=== PATIENT | female | born 1960 | race African-American/Black ===

== ENCOUNTER 2019-08-03 14:37 | Inpatient (IN) | payer MEDICAID, OTHER ==
[~2019-08-03] VITALS: Ht 165.1 cm; Wt 67.8 kg
[~2019-08-03 14:37] MED LIST: BALANCED SALT IRRIG SOLN 15ML ONE; BUPIVACAINE HCL/PF 0.75% (7.5MG/ML) 10ML ONE; CIPROFLOXACIN 0.3% OPHTH SOLN 2.5ML ONE; LIDOCAINE HCL 2%/EPINEPHRINE 1:100,000 20 ML VIAL INFIL ONE; PREDNISOLONE ACETATE 1% OPHTH DROPS 5ML ONE; TROPICAMIDE 1% OPHTH DROPS 15ML ONE
[2019-08-03] MEDS ORDERED: MORPHINE SULFATE 4 MG/ML CPJ (NOT FOR IM USE) IV ONE ×4 (15:30→20:30)
[2019-08-03] MEDS ORDERED: LIDOCAINE HCL/EPINEPHRINE 1%-EPI 1:100,000 30 ML VIAL INFIL ONE (15:30)
[2019-08-03] MEDS ORDERED: ONDANSETRON HCL 4MG/2ML INJ IV ONE (15:30)
[2019-08-03] MEDS ORDERED: CEFAZOLIN 1000MG PREMIX 50 ML IV ONE (15:45)
[2019-08-03] MEDS ORDERED: LIDOCAINE HCL/EPINEPHRINE 1%-EPI 1:100,000 20 ML VIAL INFIL ONE (15:45)
[2019-08-03] MEDS ORDERED: FLUORESCEIN SODIUM 1MG/STRIP EACHEYE ONE (16:00)
[2019-08-03 16:06] LABS: CHLORIDE 108 mEq/L (98-107)
[2019-08-03 16:09] LABS: BASOPHILS % 0.4 % (0.0-2.0); EOSINOPHILS % 0.3 % (0.0-5.0); HEMATOCRIT. 41.1 % (36.0-48.0); HEMOGLOBIN. 13.9 g/dL (12.0-16.0); MEAN PLATELET VOLUME 8.2 fl (7.4-10.4); MONOCYTES % 4.7 % (2.0-8.0); NEUTROPHILS % 84.6 % (40.0-76.0); PLATELET 247 x1000/uL (130-400); RED BLOOD CELL COUNT 4.62 mill/uL (4.2-5.4); RED CELL DISTRIBUTION WIDTH 12.8 % (11.6-14.6)
[2019-08-03 19:43] LABS: PARTIAL THROMBOPLASTIN TIME 30.6 sec (23.4-31.0); PROTHROMBIN TIME 10.5 sec (9.6-11.0)
[2019-08-03] MEDS ORDERED: MIDAZOLAM HCL 2 MG/2 ML VIAL ONE (20:54)
[2019-08-03] MEDS ORDERED: FENTANYL CITRATE/PF 50MCG/ML 2ML VIAL ONE (20:54)
[2019-08-03] MEDS ORDERED: PROPOFOL 200MG/20ML VIAL IV ONE (20:56)
[2019-08-03] MEDS ORDERED: ROCURONIUM BROMIDE 10MG/ML VIAL 5ML IV ONE (21:01)
[2019-08-03] MEDS ORDERED: HYDROMORPHONE HCL/PF 2MG/ML CPJ IV NR (21:45)
[2019-08-03] MEDS ORDERED: IBUPROFEN 600MG TABLET PO NR (21:45)
[2019-08-03] MEDS ORDERED: GLYCOPYRROLATE 0.2 MG/ML 2ML VIAL ONE (22:08)
[2019-08-03] MEDS ORDERED: DEXAMETHASONE 4MG/ML 1ML VIAL ONE (22:47)
[2019-08-03] MEDS ORDERED: HYDRALAZINE 20MG/ML VIAL IV PRN (23:15)
[2019-08-03] MEDS ORDERED: MORPHINE SULFATE 2 MG/ML CPJ (NOT FOR IM USE) IV PRN (23:15)
[2019-08-03] MEDS ORDERED: MAGNESIUM/ALUMINUM HYDROXIDE/SIMETHICONE 30ML UDC PO PRN (23:15)
[2019-08-03] MEDS ORDERED: ZOLPIDEM TARTRATE 5MG TABLET PO PRN (23:15)
[2019-08-03] MEDS ORDERED: ACETAMINOPHEN 325MG TABLET PO PRN ×2 (23:15)
[2019-08-03] MEDS ORDERED: ONDANSETRON HCL 4MG/2ML INJ IV PRN (23:15)
[2019-08-03] MEDS ORDERED: DIPHENHYDRAMINE 50MG/ML VIAL IV PRN (23:15)
[2019-08-04 02:28] VITALS: BP 122/58
[2019-08-04] MEDS ORDERED: GABA800T97 MT (03:02)
[2019-08-04] MEDS ORDERED: CYCL10TA7 PO (03:06)
[2019-08-04] MEDS ORDERED: IBUP-2029 PO (03:06)
[2019-08-04] MEDS ORDERED: DIPHENHYDRAMINE 25MG CAPSULE PO PRN (03:30)
[2019-08-04 04:00] VITALS: BP 143/68
[2019-08-04] MEDS: SODIUM CHLORIDE 0.9% INJ 3ML FLUSH IVF SCH ×3 (06:46→21:44)
[2019-08-04 08:00] VITALS: BP 143/69
[2019-08-04] MEDS: KETOROLAC 30MG/ML VIAL IV PRN ×2 (08:45→21:39)
[2019-08-04] MEDS: FAMOTIDINE 40MG TABLET PO SCH ×2 (08:46→21:43)
[2019-08-04 12:46] VITALS: BP 120/52
[2019-08-04 16:01] VITALS: BP 132/63
[2019-08-04 20:00] VITALS: BP 153/69
[2019-08-05] VITALS: BP 115/58
[2019-08-05 04:00] VITALS: BP 130/64
[2019-08-05 08:00] VITALS: BP 125/86
[2019-08-05] MEDS: FAMOTIDINE 40MG TABLET PO SCH (10:17)
[2019-08-05] MEDS: SODIUM CHLORIDE 0.9% INJ 3ML FLUSH IVF SCH (10:17)
[2019-08-05 14:11] VITALS: BP 129/75
== END 2019-08-05 14:55 | disposition home or self-care (01) | DRG 82 ==
LOC: ER 14:37 → 7WST 19:23 → ENRESERV 19:49
PROVIDERS: ADMIT Internal Medicine; ATTEND Internal Medicine
PROC: 08QPXZZ Repair Left Upper Eyelid, External Approach (ICD-10-PCS; principal; 2019-08-03)
DX: S05.30XA Ocular laceration without prolapse or loss of intraocular tissue, unspecified eye, initial encounter (principal); J44.9 Chronic obstructive pulmonary disease, unspecified; S01.112A Laceration without foreign body of left eyelid and periocular area, initial encounter; S01.81XA Laceration without foreign body of other part of head, initial encounter; R00.1 Bradycardia, unspecified; Y09 Assault by unspecified means; S05.10XA Contusion of eyeball and orbital tissues, unspecified eye, initial encounter; S02.2XXA Fracture of nasal bones, initial encounter for closed fracture; W19.XXXA Unspecified fall, initial encounter; M19.90 Unspecified osteoarthritis, unspecified site; Z82.49 Family history of ischemic heart disease and other diseases of the circulatory system; Z59.0 Homelessness; Z83.3 Family history of diabetes mellitus; Y93.89 Activity, other specified; Y92.89 Other specified places as the place of occurrence of the external cause; Y99.8 Other external cause status
CPT/HCPCS: 12014; 36415; 70486; 71045; 80053; 83880; 84484; 85025; 93005; 96365; 96375; 96376; 99291; J0690; J1100; J1885; J2250; J2270; J2405; J2704; J3010; J3490; Q0163